=== PATIENT | male | born 1990 | race Caucasian/White ===

== ENCOUNTER 2020-03-08 19:04 | Emergency (ER) | payer OTHER, SELFPAY ==
[2020-03-08] VITALS (7 sets, daily range): BP systolic 108–145; BP diastolic 78–106; PULSE 94–178; RESP 11–25; TEMP 36.8; O2SAT 97–100
--- NOTE | ~2020-03-08 | XR_ITS ---
EXAMINATION: XR chest 1V portable INDICATION: Chest pressure and tachycardia TECHNIQUE: Portable AP chest at 2037 hours COMPARISON: None available FINDINGS: There are minimal airspace opacities of the right lung base. There is no pleural effusion o r pneumothorax. The cardiomediastinal silhouette is normal. IMPRESSION: 1. Right basilar airspace opacity, consistent with atelectasis versus pneumonia. Reviewed, dictated and finalized at location A. IMPRESSION: 1. Right basilar airspace opacity, consistent with atelectasis versus pneumonia .
--- NOTE | 2020-03-08 19:13 | ED.ARRPALP ---
HPI - Arrhythmia/Palpitations General Chief Complaint: Arrhythmia/Palpitations Stated Complaint: irregular hr, chest tightness Time Seen by Provider: 03/08/20 19:13 Source: patient Mode of arrival: ambulatory Limitations: no limitations History of Present Illness HPI narrative: Patient is a previously healthy 29-year-old who presents for evaluation of palpitations. Palpitations started approximately 45 minutes prior to arrival while the patient was sitting down to play video games after dinner. He reports he has mild chest pressure, racing heart, no current shortness of breath. No previous occurrence such as this. Patient has been well-hydrated. He did have 1 alcoholic drink earlier this afternoon. No recent illnesses, nausea or vomiting. Related Data Home Medications Medication Instructions Recorded Confirmed cetirizine [Zyrtec] 10 mg PO DAILY 03/08/20 Allergies Allergy/AdvReac Type Severity Reaction Status Date / Time ibuprofen Allergy Swelling Verified 03/08/20 20:06 Review of Systems Review of Systems: Narrative: CONSTITUTIONAL: Denies fever CARDIOVASCULAR: Reports mild chest pressure, reports palpitations RESPIRATORY: Denies cough or dyspnea. GASTROINTESTINAL: Denies abdominal pain SKIN: Denies rash MUSCULOSKELETAL: Denies back pain NEUROLOGIC: Denies headache [facility] Past Medical History Medical History (Updated 03/08/20 @ 21:30 by Nabila Gauthier MD) No pertinent past medical history Surgical History Surgical History (Updated 03/08/20 @ 19:29 by Nabila Gauthier MD) No pertinent past surgical history Social History Social History (Updated 03/08/20 @ 19:30 by Nabila Gauthier MD) Smoking status: Never smoker Alcohol intake: current Alcohol use details: social Substance use: never Living arrangements: with family Gender identity (if verbalized by the patient): Male Exam Narrative: Exam Narrative: GENERAL: Awake, alert, conversant HEAD: Normocephalic, atraumatic. EYES: PERRLA and EOMI. ENT: Nares clear, no rhinorrhea or epistaxis. Mucous membranes moist. NECK: Supple. CHEST: No respiratory distress, breathing even and non labored HEART:Tachycardic, irregular rhythm ABDOMEN:Non distended, non tender EXTREMITIES: Normal range of motion. No edema. SKIN: Warm, dry, no rash. NEURO:No focal deficits. Alert and oriented x3 Course Vital Signs Vital signs: Vital Signs Temperature 36.8 C 03/08/20 19:21 Pulse Rate 175 H 03/08/20 19:21 Respiratory Rate 20 03/08/20 19:21 Blood Pressure 133/106 H 03/08/20 19:21 Pulse Oximetry 100 03/08/20 19:21 Temperature 36.8 C 03/08/20 19:21 Pulse Rate 94 03/08/20 20:49 Respiratory Rate 17 03/08/20 20:49 Blood Pressure 108/78 03/08/20 20:49 Pulse Oximetry 98 03/08/20 20:49 Procedures Procedural Sedation Procedural Sedation #1: Procedural Sedation Date: 03/08/20 Procedural Sedation Time: 19:51 Presedation Evaluation: ASA 1 Mallampati 1 Procedure: Cardioversion Provider Performed: sedation and procedure Time Out: 1944 Informed Consent Obtained: yes Equipment in Room: bag and mask, quality assurance monitor chassis, crash cart, oxygen, pulse oximeter and suction Plan for Sedation: moderate sedation ASA Class: I NPO Status: last solid food (hours ago) Explanation to Patient/Family: Risk/Benefits/Alternatives and Pt/Family agreed with plan Pt. Educated on Procedural Sedation: Yes Re-evaluated immediately prior: Yes Preparation: quality assurance monitor chassis applied, pulse oximeter, capnometry used, supplemental O2 applied, suction/airway equipment at bedside and IV secured Fentanyl: IV Fentanyl dose (mcg): 50 IV Etomidate dose (mg): 10 Patient Tolerated Procedure: well and no complications Complications: none Interventions: oxygen applied Total Sedation Time (min): 4 MDM - Arrhythmia/Palpitations
--- NOTE | 2020-03-08 19:25 | ECG_ITS ---
Measurements Intervals [place] Rate: 110 P: 47 WA: 144 QRS: 4 QRSD: 96 T: 38 QT: 309 QTc: 418 Interpretive Statements SINUS TACHYCARDIA INCOMPLETE RIGHT BUNDLE BRANCH BLOCK ABNORMAL ECG Electronically Signed On 03-08-2020 20:20:28 CDT by Romain VALLEJO
[2020-03-08] MEDS: SODIUM CHLORIDE 0.9% IV 1,000 ML 999 ML IV CONT (19:35)
[2020-03-08] MEDS: ASPIRIN 81 MG CHEWABLE TABLET 324 MG PO (19:37)
[2020-03-08] MEDS: ONDANSETRON INJ 4 MG/2 ML VIAL IV PUSH (19:39)
[2020-03-08] MEDS: ETOMIDATE 40 MG/20 ML VIAL 10 MG IV PUSH (19:41)
[2020-03-08 19:49] LABS: Basophils Percent Auto 0.3 % (0.2-1.2); Eosinophils Absolute Auto 0.2 K/mm3 (0-0.3); Eosinophils Percent Auto 2.9 % (0-4.4); Hematocrit 46.6 % (42.0-52.0); Hemoglobin 16.3 g/dL (14.0-18.0); Immature Granulocyte Absolute 0.01 K/mm3 (0.00-0.031); Immature Granulocyte Percent A 0.1 % (0-0.5); Lymphocytes Absolute Auto 2.93 K/mm3 (0.9-3.2); Lymphocytes Percent Auto 39.2 % (18.3-44.2); Mean Corpuscular Volume 88.6 fl (80-100); Monocytes Absolute Auto 0.6 K/mm3 (0.1-0.6); Monocytes Percent Auto 7.9 % (2.6-8.5); Neutrophils Absolute Auto 3.7 K/mm3 (1.3-6.7); Neutrophils Percent Auto 49.6 % (45.5-73.1); Platelet Count Result 162 k/mm3 (150-375); Red Blood Count 5.26 M/mm3 (4.6-6.20); White Blood Count 7.5 K/mm3 (4.5-10.0)
--- NOTE | 2020-03-08 19:51 | ECG_ITS ---
Measurements Intervals [place] Rate: 169 P: [place]: 0 QRS: 22 QRSD: 92 T: 31 QT: 268 QTc: 450 Interpretive Statements ATRIAL FIBRILLATION WITH RAPID VENTRICULAR RESPONSE VENTRICULAR PREMATURE COMPLEXES BASELINE ARTIFACT- AVR, AVL, AVF, V1 ABNORMAL ECG Electronically Signed On 03-09-2020 7:06:22 CDT by Romain Hammond D.O.
[2020-03-08 20:06] LABS: Anion Gap 14.1 mmol/L (7-16); Blood Urea Nitrogen 16 mg/dL (9-20); Calcium 9.1 mg/dL (8.4-10.2); Carbon Dioxide 28 mmol/L (22-30); Chloride 103 mmol/L (98-107); Estimated CRCL calculation 115 ml/min; Estimated Glomerular Filt Rate > 60; Glucose 106 mg/dL (75-110); Potassium 4.1 mmol/L (3.4-5.0); Sodium 141 mmol/L (137-145)
[2020-03-08 20:17] LABS: Troponin I 0.012 ng/mL (0.000-0.034)
== END 2020-03-08 21:55 | disposition home or self-care (01) ==
PROVIDERS: Emergency Provider Emergency Medicine
DX: I48.19 Other persistent atrial fibrillation (principal); R91.8 Other nonspecific abnormal finding of lung field; I49.3 Ventricular premature depolarization; I45.10 Unspecified right bundle-branch block; R00.0 Tachycardia, unspecified
CPT/HCPCS: 36415; 71045; 80048; 84443; 84484; 85025; 92960; 93005; 96361; 96374; 96375; 99285; A9270; J0153; J2405; J3010; J7030; J7040